=== PATIENT | female | born 1945 | race Caucasian/White ===

== ENCOUNTER 2020-07-02 00:48 | Emergency (ER) | payer MEDICARE, SELFPAY ==
[2020-07-02 00:45] VITALS: BP 194/91; PULSE 91; RESP 18; TEMP 36.6; O2SAT 99
--- NOTE | 2020-07-02 00:46 | W.ED.GENAD ---
Discharge Plan Disposition Patient Disposition: HOME Condition: Good Discharge Details Clinical Impression: Vomiting and diarrhea Primary Care Provider: Lolly,Local ED Provider: Saroj Kramer Medann and New Rx's Prescriptions: Continued colestipol 1 gram Tablet 1 g PO DAILY RF: 0 Discharge Instructions Additional Instructions: Take it easy for the rest of the weekend. [place] diet for the weekend. Stay hydrated. Follow-up with primary care next week if not doing better. Return to ED for persistent vomiting, fever, abdominal pain, bloody diarrhea, other concerns. Referrals: Primary Care Provider [Outside] Medical Decision Making At this point patient feels fine and symptoms have resolved. She has had prior history of same but it usually resolves quicker than it did. States that if she had her car here she would just simply leave. Exam is unremarkable. Will give p.o. challenge and observe for a little bit before discharge. HPI General Mode of arrival: EMS. Date/Time Provider Initiated Documentation: 07/02/20 01:02. Limitations to Documentation: no limitations. Information obtained by: patient and RN notes reviewed. HPI Narrative: Patient presents to ED by ambulance after onset of vomiting and diarrhea at about 9 PM. 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 She has not missed any doses of medications. She has not had any suspect food or drank any contaminated water she is aware of. She has not been around anyone ill. She had no chest pain, shortness of breath, abdominal pain. She has some discomfort in her abdomen now from all the vomiting. She was actually feeling better by the time EMS arrived. She received Zofran ODT on the way here and is completely asymptomatic. There was no hematemesis or hematochezia. She was fine throughout the day with sudden onset of symptoms at 9 PM. Feels a little washed out now but otherwise feels completely fine. Related Data Home Medications Medication Instructions Recorded Confirmed colestipol 1 g PO DAILY 07/02/20 07/02/20 Allergies Allergy/AdvReac Type Severity Reaction Status Date / Time oxycodone [From Percocet] Allergy Hives Unverified 07/02/20 00:58 Review of Systems Narrative: As documented in HPI otherwise negative as below. Const: no fever, chills, weakness Resp: no cough, SOB, pleuritic pain CV: no CP, diaphoresis, edema, syncope GI: no abdominal pain Neuro: no headache, numbness, focal weakness, confusion PFSH Medical History Bile salt-induced diarrhea Non-Hodgkin lymphoma Surgical History S/P cholecystectomy Social History Smoking/Tobacco Use Status: Former Tobacco Use Smoking risk assessment performed?: Yes Alcohol Intake: former Drug use: Never Substance use type: does not use Details: Former alcoholic, sober x years Do you feel safe at home: Yes Do you feel safe in your relationship?: Yes Exam Narrative Exam Narrative: Const: WDWN elderly female in NAD. HEENT: [place]/AT. Normal facial exam. Eyes: Normal conjunctiva and sclera. Neck: Supple. Trachea midline. Lungs: Normal respiratory effort. Lungs are clear. Cor: RRR without murmur/gallop. GI: Soft. NT/ND. No guarding or rebound. Neuro: A+O x 3. Normal speech, mentation, gait. Cranial nerves II - XII grossly intact. No gross motor or sensory deficit. Ext: No C/C/E. Skin: Warm and dry without rash.
--- NOTE | 2020-07-02 01:44 | NUR.NOTE ---
Nursing Note: Patient tolerating ice chips without any issues. No N/V/D since arrival to the ER.
--- NOTE | 2020-07-02 02:46 | NUR.NOTE ---
Nursing Note:Have called [facility] to request a ride for patient back to her brothers house. Patient here visiting her brother from [place]. Brother is currently inpatient at [facility]. No call back from [facility] at this time. Patient currently sleeping and is aware we are working on a ride home for her.
[2020-07-02 05:46] VITALS: BP 137/72; PULSE 86; RESP 16; O2SAT 98
--- NOTE | 2020-07-02 05:47 | NUR.NOTE ---
Nursing Note:Patient was abl3e to find a ride they will be here about 0600. Patient sipping on margo kwesi and has had no N/V/D during ER stay. Resting on stretcher waiting for friend to call.
== END 2020-07-02 06:46 | disposition home or self-care (01) ==
PROVIDERS: Emergency Provider Emergency Medicine
DX: R11.10 Vomiting, unspecified (principal); R19.7 Diarrhea, unspecified
CPT/HCPCS: 99283